=== PATIENT | female | born 1955 | race Caucasian/White ===

== ENCOUNTER 2017-09-09 08:25 | Emergency (ER) | payer OTHER ==
[2017-09-09 08:30] VITALS: TEMP 97.9
[2017-09-09] MEDS ORDERED: NS 500 ML IV ONE (08:38)
--- NOTE | 2017-09-09 08:43 | CPEKG ---
Heart Rate: 69 RR Interval: 870 P-R Interval: 164 QRSD Interval: 76 QT Interval: 356 QTC Interval: 382 P Lafferty: 38 QRS Lafferty: 55 T Wave Lafferty: 34 EKG Severity - NORMAL ECG - EKG Impression: SINUS RHYTHM Electronically Signed By: Sharon Dean 09-Sep-2017 15:22:20
[2017-09-09 08:59] LABS: % IMMATURE GRANULYOCYTES 0.3 % (0.0-1.1); ABSOLUTE IMMATURE GRANULOCYTES 0.02 10^3/uL (0.00-0.10); ADD DIFF? NO; ADD MORPH? NO; ADD SCAN? NO; ATYPICAL LYMPHOCYTE FLAG 20 (0-99); FRAGMENT RBC FLAG 10 (0-99); HEMATOCRIT 43.4 % (38.0-47.0); HEMOGLOBIN 15.1 g/dL (12.6-16.3); LEFT SHIFT FLG 0 (0-99); LIPEMIA HEMOLYSIS FLAG 90 (0-99); MEAN CELL HEMOGLOBIN CONCENTR. 34.8 g/dL (32.4-36.7); MEAN CELL VOLUME 91.9 fL (81.5-99.8); MEAN PLATELET VOLUME 10.6 fL (8.7-11.7); PLATELET CLUMPS FLAG 10 (0-99); PLATELET COUNT 211 10^3/uL (150-400); RED BLOOD CELL COUNT 4.72 10^6/uL (4.18-5.33); RED CELL DISTRIBUTION WIDTH 13.5 % (11.5-15.2)
--- NOTE | 2017-09-09 09:05 | EDPHY ---
H & P Time Seen by Provider: 09/09/17 08:37 HPI/ROS: HPI Numbness, left side of face and head. 62-year-old female by private vehicle with family. This patient reports that yesterday morning she had a sensation of tingling involving the left side of her face and the back of her head. She reports this went away. She reports that she had this sensation in the morning. She reports that she then woke up this morning with the same sensation of tingling involving the left side of her face and the back of her head and also had blurry vision. Worse in the left eye verses the right eye. She has had the symptoms in the past but not as severe as this. She reports the visual changes are worse than usual. She denies any other associated signs or symptoms. No other aggravating or alleviating factors. She has no history did tick exposure walking in the coats. ROS: Constitutional: No fever, no chills. No weakness. Eyes: No discharge. No changes in vision. ENT: No sore throat. No nasal congestion or rhinorrhea. Respiratory: No cough. No shortness of breath. Cardiac: No chest pain, no palpitations. Gastrointestinal: No abdominal pain, no vomiting, no diarrhea. Genitourinary: No hematuria. No dysuria or increased frequency with urination. Musculoskeletal: No back pain. No neck pain. No myalgias or arthralgias. Skin: No rashes. Neurological: No headache. As above. No focal weakness or altered sensation. Past medical history: Coronary artery disease with stent placement, hyperlipidemia, SVT, cholecystectomy, fusion L5-S1, hernia repair. Social history: Drinks alcohol socially. Here with family. Nonsmoker. Physical Exam: General Appearance: Alert, no distress. This patient is responding to questions appropriately and in full sentences. This patient appears well- hydrated and well-nourished. Eyes: Pupils equal and round no pallor or injection. No lid edema, erythema or injection. ENT, Mouth: Mucous membranes are moist. The pharyngeal tissues are unremarkable. No edema or swelling. No asymmetry suggestive of abscess. No erythema or exudates. Respiratory: There are no retractions, lungs are clear to auscultation with good air movement bilaterally. Cardiovascular: Regular rate and rhythm. No murmur. No carotid artery bruits auscultated. Gastrointestinal: Abdomen is soft and nontender, no masses, bowel sounds normal. No focal tenderness at McBurney's point. No Stanley sign. Neurological: Motor sensory function is grossly intact. Cranial nerves are normal except for mild paresthesia involving the left side of her face, upper slightly worse than lower. She describes this as a tingling sensation but feels light touch to these areas. She describes the same sensation through the parietal aspect of her head going to the left side posteriorly. Gait is normal. Skin: Warm and dry, no rashes. No rash appreciated on the scalp indicated zoster. Musculoskeletal: Neck is supple and nontender. Extremities are symmetrical. All joints range without pain or impingement. Psychiatric: No agitation. No depression. Database: EKG: EKG time is 8:41 a.m.; EKG shows a narrow complex normal sinus rhythm with a ventricular rate of 69. The MN, QRS, QT intervals are within normal limits. There are no ST-T wave changes indicative of ischemic or injury pattern. No evidence of right heart strain. Interpreted by me. Imaging: Carotid artery Doppler ultrasounds; mild atherosclerotic disease. Results were discussed with staff radiologist Dr. Jitendra Chiang. Diffusion-weighted MRI brain without contrast; white matter disease noted. Nonspecific for MS. Otherwise normal study. Results were discussed with staff radiologist Dr. Jitendra Chiang. Procedures: Emergency department course: IV placed. She was placed on a child monitor. EKG performed. She was given 324 mg of chewed aspirin. 11:00 a.m., patient is in MRI now. Results of ultrasound discussed with family. 12:45 p.m., patient re-evaluated. She is now asymptomatic. Repeat neurologic Assessment is nonfocal. I discussed the results of her ultrasound as well as MRI with her and her family. 12:50 p.m. spoke with on-call neurologist Dr. Shrestha. Case discussed in detail with Neurology. The patient is currently asymptomatic. She had her MRI while she was having symptoms. Her presentation is not consistent with CVA. A CVA is very unlikely. Her workup has been reassuring. He feels the patient can be discharged home he will follow up with her in his office on Tuesday. I am in agreement with this plan. This was discussed with the patient and family. They feel comfortable going home. The patient and family understand her follow- up. Return to emergency department precautions were thoroughly reviewed with them. All of their questions were answered. The patient was discharged home in good condition. Differential Diagnosis: The differential diagnosis on this patient includes but is not limited to atypical migraine syndrome, zoster, Wilks's palsy, Lyme disease, CVA. This represents a partial list of diagnoses considered. These considerations are based on history, physical exam, past history, reassessment and diagnostic testing. Smoking Status: Former smoker Constitutional: Initial Vital Signs Temperature (C) 36.6 C 09/09/17 08:28 Heart Rate 81 09/09/17 08:28 Respiratory Rate 18 09/09/17 08:28 Blood Pressure 164/103 H 09/09/17 08:28 O2 Sat (%) 95 09/09/17 08:28 O2 Delivery Mode Room Air Allergies/Adverse Reactions: niacin Allergy (Verified 08/07/12 14:41) Swelling/neck,face,throat Penicillins Allergy (Verified 08/07/12 14:41) Hives GLUTEN Allergy (Intermediate, Uncoded 07/05/13 13:25) JOINT/STOMACH PAIN Home Medications: Medication Instructions Recorded Clopidogrel Bisulfate [Plavix (*)] 75 mg PO DAILY 08/08/12 DULoxetine [Cymbalta 60 MG (*)] 60 mg PO DAILY 08/08/12 Multivitamins [Multivitamin (*)] 1 each PO DAILY 08/08/12 Aspirin EC [Aspirin EC 81 mg (*)] 81 mg PO DAILY 11/10/15 Atorvastatin Calcium [Lipitor 40 40 mg PO DAILY 11/10/15 mg (*)] Cyclobenzaprine [Flexeril 10 MG 10 mg PO BID PRN 11/10/15 (*)] Glucosamine/Chondroitin 2 each PO DAILY 11/10/15 [Glucosamine/Chondroitin (*)] Ibuprofen [Motrin (*)] 800 mg PO TID PRN 11/10/15 Digoxin [Lanoxin 0.25 mg] 0.25 mg PO DAILY10 #30 tab 11/11/15 oxyCODONE/APAP 5/325 [Percocet 1 - 2 tab PO Q4 PRN #20 tab 11/11/15 5/325 (*)] Medical Decision Making - Diagnostics Imaging Results: Imaging Impressions Brain MRI 09/09/17 08:38 Impression: 1. Multiple nonspecific hyperintense T2/FLAIR signal abnormalities in the white matter of bilateral cerebral hemispheres. Differential diagnosis includes moderate microvascular ischemic gliosis, migraine-related sequela, atypical demyelinating disease, or postinfectious/post inflammatory sequela. 2. No acute infarct, acute hemorrhage, hydrocephalus or mass effect. Findings and recommendations discussed with Emergency Department physician, Sharon Dean MD at 12:11 hour, 09/09/2017. Final report concurs with initial preliminary interpretation. Carotid Doppler Study 09/09/17 08:39 Impression: 1. Mild atherosclerotic disease bilateral carotid bulbs. 2. Velocities correlate to less than 30% diameter stenosis of the origin of the right internal carotid artery. 3. Velocities correlate to less than 30% diameter stenosis of the origin of the left internal carotid artery. 4. Bilateral vertebral arteries are patent with antegrade flow. Measurement of carotid stenosis is based on velocity parameters that correlate the residual internal carotid diameter with [place] Symptomatic Carotid Endarterectomy Trial (NASCET) based stenosis levels. Findings and recommendations discussed with Emergency Department physician, Sharon Dean MD at 10:25 hour, 09/09/2017. Final report concurs with initial preliminary interpretation. - Data Points Laboratory Results: Laboratory Results 09/09/17 08:40 09/09/17 08:40 09/09/17 09/09/17 09/09/17 08:40 08:40 08:35 WBC 6.06 10^3/uL 10^3/uL (3.80-9.50) RBC 4.72 10^6/uL 10^6/uL (4.18-5.33) Hgb 15.1 g/dL g/dL (12.6-16.3) POC Hgb 16.3 gm/dL gm/dL (12.6-16.3) Hct 43.4 % % (38.0-47.0) POC Hct 48 % H % (38-47) MCV 91.9 fL fL (81.5-99.8) MCH 32.0 pg pg (27.9-34.1) MCHC 34.8 g/dL g/dL (32.4-36.7) RDW 13.5 % % (11.5-15.2) Plt Count 211 10^3/uL 10^3/uL (150-400) MPV 10.6 fL fL (8.7-11.7) Neut % (Auto) 56.1 % % (39.3-74.2) Lymph % (Auto) 26.2 % % (15.0-45.0) [place] % (Auto) 11.9 % % (4.5-13.0) Eos % (Auto) 4.8 % % (0.6-7.6) Baso % (Auto) 0.7 % % (0.3-1.7) Nucleat RBC Rel Count 0.0 % % (0.0-0.2) Absolute Neuts (auto) 3.40 10^3/uL 10^3/uL (1.70-6.50) Absolute Lymphs (auto) 1.59 10^3/uL 10^3/uL (1.00-3.00) Absolute Monos (auto) 0.72 10^3/uL 10^3/uL (0.30-0.80) Absolute Eos (auto) 0.29 10^3/uL 10^3/uL (0.03-0.40) Absolute Basos (auto) 0.04 10^3/uL 10^3/uL (0.02-0.10) Absolute Nucleated RBC 0.00 10^3/uL 10^3/uL (0-0.01) Immature Gran % 0.3 % % (0.0-1.1) Immature Gran # 0.02 10^3/uL 10^3/uL (0.00-0.10) POC Sodium 141 mEq/L mEq/L (134-144) Sodium 144 mEq/L mEq/L (134-144) POC Potassium 3.9 mEq/L mEq/L (3.3-5.0) Potassium 4.3 mEq/L mEq/L (3.5-5.2) POC Chloride 103 mEq/L mEq/L (97-110) Chloride 104 mEq/L mEq/L (97-110) Carbon Dioxide 25 mEq/l mEq/l (22-31) Anion Gap 15 mEq/L mEq/L (8-16) POC BUN 14 mg/dL mg/dL (7-23) BUN 14 mg/dL mg/dL (7-23) Creatinine 0.8 mg/dL mg/dL (0.6-1.0) POC Creatinine 1.0 mg/dL mg/dL (0.6-1.0) Estimated GFR > 60 Glucose 87 mg/dL mg/dL (70-100) POC Glucose 89 mg/dL mg/dL (70-100) Calcium 9.4 mg/dL mg/dL (8.5-10.4) Medications Given: Discontinued Medications Sodium Chloride (Ns) 500 mls @ 0 mls/hr IV ONCE ONE; Wide Open PRN Reason: Protocol Stop: 09/09/17 08:39 Last Admin: 09/09/17 08:58 Dose: 500 mls Point of Care Test Results: 09/09/17 08:35 POC Sodium 141 POC Potassium 3.9 POC Chloride 103 POC BUN 14 POC Creatinine 1.0 POC Glucose 89 Departure - Departure Disposition: Home, Routine, Self-Care Clinical Impression: Paresthesia left face, Visual changes Condition: Good Instructions: Paresthesia (ED) Additional Instructions: Read and follow provided instructions. Follow-up with Neurology on Tuesday, Dr. Shrestha. Call his office this afternoon for appointment time on Tuesday. I discussed your presentation and workup in the emergency department with him. Return to the emergency department for return of symptoms, headache, visual changes, loss of sensation or weakness in your extremities or other serious concerns. Referrals: Francisco Shrestha DO [Doctor of Osteopathy] - As per Instructions
[2017-09-09 09:17] LABS: ANION GAP 15 mEq/L (8-16); CALCIUM 9.4 mg/dL (8.5-10.4); CARBON DIOXIDE 25 mEq/l (22-31); CHLORIDE 104 mEq/L (97-110); CREATININE 0.8 mg/dL (0.6-1.0); GLOMERULAR FILTRATION RATE > 60; GLUCOSE 87 mg/dL (70-100); POTASSIUM 4.3 mEq/L (3.5-5.2); SODIUM 144 mEq/L (134-144)
[2017-09-09 13:48] VITALS: BP 161/94; PULSE 74; RESP 16; O2SAT 95
== END 2017-09-09 14:09 | disposition home or self-care (01) ==
DX: R20.2 Paresthesia of skin (principal); H53.8 Other visual disturbances; I25.10 Atherosclerotic heart disease of native coronary artery without angina pectoris; E86.9 Volume depletion, unspecified; Z79.82 Long term (current) use of aspirin; Z87.891 Personal history of nicotine dependence
CPT/HCPCS: 82947-QW